=== PATIENT | male | born 1985 | race Caucasian/White ===

== ENCOUNTER 2024-04-11 13:21 | Emergency (ER) | payer OTHER ==
[~2024-04-11] VITALS: Ht 182.9 cm; Wt 113.4 kg
[~2024-04-11 13:21] MED LIST: METF-346 PO; SLIDE SUBQ
[2024-04-11 13:29] VITALS: BP 146/83; PULSE 76; RESP 22; TEMP 98.4; O2SAT 99
[2024-04-11] MEDS ORDERED: SULF-59 PO (14:37)
[2024-04-11] MEDS ORDERED: LANC-587 MC (14:54)
[2024-04-11 14:57] VITALS: BP 146/83; PULSE 76; RESP 22; TEMP 98.4; O2SAT 99
== END 2024-04-11 14:58 | disposition home or self-care (01) ==
LOC: MED 13:21
DX: S91.101A Unspecified open wound of right great toe without damage to nail, initial encounter (principal); T25.222A Burn of second degree of left foot, initial encounter; T25.221A Burn of second degree of right foot, initial encounter; L08.89 Other specified local infections of the skin and subcutaneous tissue; E11.9 Type 2 diabetes mellitus without complications; I10 Essential (primary) hypertension; Z79.899 Other long term (current) drug therapy; Z79.4 Long term (current) use of insulin; Z88.5 Allergy status to narcotic agent; X19.XXXS Contact with other heat and hot substances, sequela; Y92.89 Other specified places as the place of occurrence of the external cause; Y93.89 Activity, other specified; Y99.8 Other external cause status
CPT/HCPCS: 82948; 99283